=== PATIENT | male | born 1985 | race Caucasian/White ===

== ENCOUNTER 2023-10-20 11:05 | Emergency (ER) | payer BC, SELFPAY ==
[2023-10-20] VITALS (7 sets, daily range): BP systolic 126–165; BP diastolic 77–97; PULSE 83–96; RESP 12–20; TEMP 36.9; O2SAT 96–100
--- NOTE | 2023-10-20 11:30 | ED.GENADUL_ITS ---
HPI General Mode of arrival: ambulatory . Date/Time Provider Initiated Documentation: 10/20/23 11:07 . Limitations to Documentation: no limitations . Information obtained by: patient . History of Present Illness 38 year old M presents to the emergency department with the chief complaint of ?psychotic break, described as moderate, Patient started experiencing this day(s) (2) and it has been constant. No relieving factors improve symptom(s), No exacerbating factors reported . Patient notes denies chest pain, fever/chills and shortness of breath. Patient did receive the following treatments prior to arrival, none Related Data Home Medications Medication Instructions Recorded Confirmed Unknown [No Known Home Meds] 10/20/23 10/20/23 Allergies Allergy/AdvReac Type Severity Reaction Status Date / Time No Known Allergies Allergy Verified 10/20/23 12:19 General Stated Complaint: PsychEval ALBIN: 2 Review of Systems All systems reviewed & are unremarkable except as noted in HPI and below Constitutional Constitutional: Denies chills, Denies fever(s) and Denies weakness Cardiovascular Cardiovascular: Denies chest pain and Denies dyspnea Respiratory Respiratory: Denies cough and Denies dyspnea Gastrointestinal Gastrointestinal: Denies abdominal pain, Denies nausea and Denies vomiting Genitourinary Genitourinary: Denies dysuria Musculoskeletal Musculoskeletal: Denies joint swelling Integumentary/Breasts Skin/Breast: Denies rash Neurologic Neurologic: Denies weakness Exam Const General: no acute distress Orientation: alert [facility] Head: normal to inspection Ears: external ears normal General nose exam: external nose normal Mouth: moist mucous membranes Eyes General: appearance normal, both eyes and all related structures Neck Neck: normal visual inspection, full ROM and no lymphadenopathy Resp Effort & Inspection: normal respiratory effort and able to speak in complete sentences Cardio Rate: regular rate Skin General skin exam: no rashes or lesions noted Neuro General: patient alert and patient oriented x3 Extrem General: normal to inspection Psych Appearance: well kempt Course Vital Signs Vital signs: Vital Signs Pulse 96 H 10/20/23 11:14 Respiratory Rate 10/20/23 11:14 Blood Pressure 126/87 10/20/23 11:14 Pulse Oximetry 96 10/20/23 11:14 Pulse 96 H 10/20/23 11:14 Respiratory Rate 10/20/23 11:14 Blood Pressure 126/87 10/20/23 11:14 Blood Pressure Position Sitting 10/20/23 11:14 Pulse Oximetry 96 10/20/23 11:14 Oxygen Delivery Method Room Air 10/20/23 11:14 Oxygen Flow Rate 0 10/20/23 11:14 Medical Decision Making 38-year-old male comes in with EMS with a question of a psychotic break. He apparently was with his and kids driving home from [place], lives in [facility], it was starting to get agitated per EMS report and with EMS he was having flight of ideas talking about how he likes people that have lived in the world and was going on tangential thoughts. He apparently has not slept for 2 days. On arrival with EMS he tried to walk out of the department was redirected back into the room. He currently is not answering a lot of questions and seems anxious. He denies any headache, chest pain, abdominal pain, difficulty breathing. He has a normal gait, no focal deficits, pupils are equal and reactive to light, no signs of trauma to the head. Suspect this is a first psychotic break, will check for electrolyte abnormalities, talk screen, and given this is the first episode will attempt to get a head CT to exclude mass as a cause of this but it seems unlikely given lack of headache. does state that he did have a lot of ticks on him this past fall will send out tick panel, has no fevers chills never had any rashes so doubt Lyme meningitis. Given this is reportedly his first possible psychotic break do feel he needs labs and imaging before being medically cleared Labs unremarkable, still pending head CT, patient started hyperventilating seem to be having some type of panic attack and was not redirectable, was given Ativan, Zyprexa, Benadryl in order to calm him down and also do obtain CT imaging. As medications were ordered patient became aggressive and was trying to leave the room, was making threatening statements towards staff so in order to protect staff patient was medicated and placed in 4-point restraints. During this patient was having flight of ideas and was not redirectable pt more sedated but still waking up and intermittently agitated, in order to get the CT will administer IM ketamine CT negative, labs unremarkable, patient now medically cleared to speak to mental health but he is too sedated at this time to speak with him so will need to be monitored until he can talk with mental health. Patient will be signed out to oncoming provider to observe until patient more awake to talk to mental health. Patient now sedated and calm in the bed so restraints were removed Differential Diagnosis Differential Diagnosis: Psychotic break, flight of ideas, Imaging Data Radiologic Study: Attestation: I personally reviewed and interpreted this imaging study as follows: Imaging: CT Scan Radiologist's impression: PROCEDURE INFORMATION: Exam: CT Head Without Contrast Exam date and time: 10/20/2023 2:40 PM Age: 38 years old Clinical indication: Other: Altered mental status, ? mass TECHNIQUE: Imaging protocol: Computed tomography of the head without contrast. COMPARISON: No relevant prior studies available. FINDINGS: Brain: Normal. No hemorrhage. Unremarkable white matter. No mass effect. Cerebral ventricles: No ventriculomegaly. Paranasal sinuses: There is mild mucosal disease of the left maxillary sinus. Mastoid air cells: Visualized mastoid air cells are well aerated. Bones/joints: Unremarkable. No acute fracture. Soft tissues: Unremarkable. IMPRESSION: No large territorial infarct or intracranial bleed. Lab Data Lab results reviewed: Yes I reviewed the patient's lab results. Quality:SDOH Health Related Social Needs: No Data to Display [facility] All Active Problems (Updated 10/20/23 @ 15:25 by Aaron Mccoy MD) Psychosis (Acute) Social History Smoking risk assessment performed?: No Discharge Plan Discharge Details Chief Complaint: PsychEval Clinical Impression: Psychosis Primary Care Provider: Christian White ED Provider: Aaron Mccoy Home Meds and New Rx's Prescriptions: No Action No Known Home Meds Restraint Face to Face Time of Face to Face Face to Face: Time of Face to Face: 13:23 Patient's Immediate Situation Requiring Restraints/Seclusion: Harm to Staff & Others Patient Response to Restraints: Remains Agitated and Restless Need for Continuation of Restraints Has Been Assessed: Restraints Continued 2nd Face to Face: Time of Face to Face: 14:59 Patient's Immediate Situation Requiring Restraints/Seclusion: Harm to Staff & Others Patient Response to Restraints: Remains Agitated and Restless Need for Continuation of Restraints Has Been Assessed: Restraints Continued 3rd Face to Face: Time of Face to Face: 15:29 Patient Response to Restraints: Tolerating without Problems Patient's Medical & Behavioral Condition: Patient now resting in bed, sedated, not agitated currently so we will remove from physical restraints and monitor. Need for Continuation of Restraints Has Been Assessed: Restraints Terminated
[2023-10-20 12:03] LABS: Abs Immature Grans 0.02 10^3/uL (0.0-0.06); Absolute Basophil Count 0.04 10^3/uL (0.0-0.2); Absolute Eosinophil Count 0.08 10^3/uL (0.0-0.7); Absolute Lymphocyte Count 0.79 10^3/uL (1.2-3.4); Absolute Monocyte Count 0.55 10^3/uL (0.1-0.8); Absolute Neutrophil Count 6.76 10^3/uL (1.2-6.7); Basophils % 0.5; HCT 45.3 % (40.0-50.0); HGB 16.1 g/dL (13.5-17.5); Immature Grans % 0.2; Lymphocytes % 9.6; MCH 29.2 pg (27.0-33.0); MCHC 35.5 % (32.0-36.0); MCV 82 fL (80-95); MPV 9.5 fL (8.0-11.0); Monocytes % 6.7; Platelet Count 183 10^3/uL (130-400); RBC 5.51 10^6/uL (4.36-5.78); RDW 11.9 % (11.8-14.1); RDW-SD 35.8 fL; WBC 8.24 10^3/uL (4.4-10.8)
[2023-10-20 12:11] LABS: Bilirubin Negative (Negative); Blood Negative (Negative); Clarity Sl Cloudy (Clear); Glucose Negative (Negative); Ketones Trace mg/dL (Negative); Leukocyte Esterase Negative (Negative); Nitrite Negative (Negative); Urobilinogen 0.2 mg/dL (Up to 0.2); pH 6.5 (5-8)
[2023-10-20 12:37] LABS: ALT 32 U/L (16-63); AST 30 U/L (15-37); Albumin 4.7 g/dL (3.4-5.0); Alkaline Phosphatase 101 U/L (46-116); BUN 10 mg/dL (7-18); Bilirubin, Total 0.9 mg/dL (0.2-1.0); Calcium 9.5 mg/dL (8.5-10.1); Chloride 103 mmol/L (98-107); Estimated GFR 98.18 (mL/min/1.73m2); Glucose 109 mg/dL (74-106); Lipase 21 U/L (16-77); Potassium 3.7 mmol/L (3.5-5.1); Sodium 143 mmol/L (136-145); Total Protein 8.3 g/dL (6.4-8.2)
[2023-10-20 12:39] LABS: *AMPHETAMINES SCREEN URINE Negative (Negative); *BARBITURATES SCREEN URINE Negative (Negative); *BENZODIAZEPINES SCREEN URINE Negative (Negative); Cannabinoids THC Negative (Negative); Cocaine Screen,Urine Negative (Negative); METHADONE URINE SCREEN Negative (Negative); OPIATES URINE SCREEN Negative (Negative)
[2023-10-20 12:45] LABS: Magnesium 2.1 mg/dL (1.8-2.4); TSH (W/Ref FT4) 2.13 uIU/mL (0.36-3.74)
[2023-10-20 12:48] LABS: Acetaminophen < 2 ug/mL (10-30)
[2023-10-20 12:50] LABS: ETHANOL BLOOD < 3.0 mg/dL (<10)
[2023-10-20 12:50] LABS: Tricyclic Antidepressants Negative (Negative)
[2023-10-20] MEDS: diphenhydrAMINE 50 MG/ML VIAL IM (13:27)
[2023-10-20] MEDS: LORazepam 2 MG/ML VIAL IM (13:28)
[2023-10-20] MEDS: Water,Injection,Sterile 10 ML VIAL (13:30)
[2023-10-20] MEDS: OLANZapine 10 MG VIAL IM (13:30)
--- NOTE | 2023-10-20 15:11 | DI.CT_ITS ---
Exam(s) CT HEAD WO EXAM: CT HEAD WO CLINICAL HISTORY: altered mental status, ?mass. TECHNIQUE: Imaging Protocol: Axial computed tomography images with coronal and sagittal reformatted images were created and reviewed COMPARISON: No exams were available for comparison FINDINGS: Ventricles and Extra axial spaces: Normal in size and morphology for the patient's age. Hemorrhage: None. Cerebral parenchyma: Normal. Midline shift: None. Brainstem/Cerebellum: Normal. Calvarium: Normal. Visualized Paranasal sinuses/Mastoids: Mild mucosal thickening in the left maxillary sinus a few ethm oid air cells and the right sphenoid sinus. No fluid levels are seen. The remaining visualized para nasal sinuses are clear. Soft Tissues: Unremarkable. IMPRESSION: No acute intracranial process. RADIATION DOSE DELIVERED: 833.74mGy.cm Total DLP DATA REPOSITORY: All CT scans at this facility are submitted to the National Radiology Data Registry (NRDR) Dose Index Registry (DIR) with the [employer] (ACR). RADIATION OPTIMIZATION: All CT scans at this facility use at least one of these dose optimization te chniques: automated exposure control; mA and/or kV adjustment per patient size (includes targeted exa ms where dose is matched to clinical indication); or iterative reconstruction.
--- NOTE | 2023-10-20 15:21 | DI.VRAD_ITS ---
PROCEDURE INFORMATION: Exam: CT Head Without Contrast Exam date and time: 10/20/2023 2:40 PM Age: 38 years old Clinical indication: Other: Altered mental status, ? mass TECHNIQUE: Imaging protocol: Computed tomography of the head without contrast. COMPARISON: No relevant prior studies available. FINDINGS: Brain: Normal. No hemorrhage. Unremarkable white matter. No mass effect. Cerebral ventricles: No ventriculomegaly. Paranasal sinuses: There is mild mucosal disease of the left maxillary sinus. Mastoid air cells: Visualized mastoid air cells are well aerated. Bones/joints: Unremarkable. No acute fracture. Soft tissues: Unremarkable. IMPRESSION: No large territorial infarct or intracranial bleed. Dictated and Authenticated by: Tim Sanford MD. Ordering:DARA Walker MD
[2023-10-20] MEDS: Ketamine 500 MG/10 ML VIAL 300 MG IM (15:23)
--- NOTE | 2023-10-20 18:38 | ED.PROG_ITS ---
Date of service: 10/20/23 Time of Service: 18:38 Medical Decision Making Patient accepted in signout from off going provider. 38-year-old gentleman without prior history of psychiatric illness or other medical problems presents with 4 days of worsening altered mental status, bizarre behavior, delusions, paranoia. Has not slept in 2 days. Patient was ruled received multiple doses of sedation for his agitation and to facilitate getting a head CT. His workup was otherwise unremarkable. His head CT is unremarkable. There is no clear organic etiology of his altered mental status. On my evaluation, the patient was disorganized, paranoid and bizarre, but calm. His is here and denies any drug use or history of psychiatric illness. A telepsychiatry consultation was made. I discussed the case with the tele psychiatrist and she reviewed the chart and documentation. 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 The symptoms do seem to fit. She does not feel that there is an underlying organic etiology that we have missed. She recommends starting medication for mood stabilization. The psych recommendations include: 5 mg oral Zyprexa twice daily 500 mg Depakote twice daily 10mg IM Zyprexa as needed for acute agitation. She recommends a Depakote level in 5 days and a baseline ammonia level. The patient was evaluated by [facility] and they do not feel the patient has any insight or capacity for decision-making at this time. He is unable to make a safety plan as he states everything will be resolved tomorrow with the end of the world.. They recommend EEG. This paperwork has been filed. At this time we are pending a second certification. Medical Records Medical records reviewed: Yes I reviewed the patient's medical records. Lab Data Lab results reviewed: Yes I reviewed the patient's lab results. Quality:SDOH Health Related Social Needs: No Data to Display Sign Out Sign Out Data: Sign Out Comment: no prior medical or psychiatric disorders, was driving home with his and kids from a friend's house apparently has not slept for 2 days and today has been having flight of ideas. His significant other stopped the car and called for EMS to help as she was becoming agitated. On arrival he was not answering a lot of questions but then after being here for some time he became agitated and was having flight of ideas requiring chemical restraint. Was able to speak to mental health prior to being sedated as he was not medically cleared. Labs and CT head unremarkable so now is medically cleared to speak to mental health when he is more awake. Last updated by Aaron Mccoy MD at 10/20/23 15:41 Discharge Plan Discharge Details Chief Complaint: PsychEval Clinical Impression: Psychosis Primary Care Provider: Christian White ED Provider: Belen Howard Home Meds and New Rx's Prescriptions: No Action No Known Home Meds
--- NOTE | 2023-10-20 22:38 | PDOC.MHCN_ITS ---
Date of service: 10/20/23 Time of Service: 19:15 Mental Health Emergency Note Release [facility] release signed:: No Reason for Visit The client is not known to [facility], prior to the assessment today. The client arrived at [facility] ED via EMS after [place] [address] as the client was becoming agitated yelling and screaming. This telegraphic typewriter mechanic assesses the client via telehealth. In the last 2 weeks has the pt presented for ES prior to today?: No Client Information Client is: New Well Housed: Yes Non Suicidal Self Injury Current: No History: No Safety Risk/Harm to Self or Others Current Ideation to Harm Self or Others: Yes to self. Intent: no, has no intent. Plan: no.does not have a plan. History of suicide attempt: No history of suicide attempt reported and to others. Intent: No Plan: no, does not have a plan. History of becoming violent with another person(any age): no history of violence with others. Risk: Does risk to harm exist?: yes. Access to means: No. Risk: High Risk Duty to warn indicated: No Asssessment/Mental Status Appearance: Well groomed Attitude: Cooperative and Guarded Behavior: Unremarkable and Agitated Speech: Soft, Slow, Slurred and Hesitant Affect: Flat and Cogruent with mood Mood: Expansive and Anxious Thought process: Loose associations, Flight of ideas and Tangential Hallucinations: yes, Auditory Delusions: yes, Persectory/Paranoid, Grandiose and Bizarre Attention: Wandering and Poor concentration Perception: Not impaired Orientation: Fully orientated Memory: Intact Insight: Poor Judgement: Poor Neurovegetative Symptoms Sleep: Decrease Appetitie: Decrease Interests: Decrease Energy: Decrease Libido: Not applicable Substance Use: Do you use nicotine?: No Have you used substances in the last 7 days?: No Additional Issues: Assaultive/Threatening Behavior: No Medical Concerns: No Client engaged in active self harm w/weapon: No Threatening to run away: No Child reported abuse/neglect: No Voluntarily presenting for services: No Domestic violence is a concern: No Extreme Psychosis or extreme behavior is present: Yes Impression The client presents in paper hospital scrubs and appearance seems to be unremarkable. The client?s attitude is cooperative for the majority of the assessment, but does get agitated and escalated at times. The client gives fair eye contact during the assessment. The client presents with tangential thoughts, loose associations and disorganized thought process. The client?s mood appears to be disorganized and confused as evidenced by the client repeating ?love equals power.? The client also states: ?the clarity that I received last night, money is being replaced by bitcoin. That is the reason why the [place] is completely invisible. Everything needs to be distributed and secured. I have one more task that is being asked of me before I lose this gift, it will be all over with tomorrow.? The client is showing poor insight and judgment as he has been becoming highly agitated, yelling and screaming and hyper focused on bitcoin and the world coming to an end. ? The client denies suicidal and homicidal ideations. Per the client?s ?s report about two to three weeks ago the client started to become obsessive with bitcoin, but seemed to be rational at times. Over the past week the client has been believing that there was going to be a financial crash and that all of their finances needed to be moved to [facility] where [place] or [place] could oversee their finances. The clients also believes that the world is coming to an end. It appears that the client is experiencing auditory hallucinations as he states: ?the creator is talking to me through music and giving me tasks to do.? ?This weekend the reports that the client was focused on going to [place] to see his friend Ravi. The client was able to agree with his that if the conversation with Ravi did not get the client back to his baseline that he would agree to be seen by a doctor. The reports that the client was able to have a rational conversation with Ravi, but then when they were in bed last night he was experiencing really fast intense breathing and holding the ?s hand repeating ?love equals power.? The reports that the client has not slept in two days. The reports that today when they were driving back home from [place] with his two children in the car ages 6 and 9 the client became highly dysregulated in the car holding on to the ?s hand and yelling and screaming at the top of his lungs. The client?s reports that she pulled over to the side of the road and called 911. While on the side of the road the client was still very escalated where he got out of the car and took their young son out of the car [place] highly traff[place] area. When the cl ient arrived at the ED he tried to elope numerous times and became highly agitated where he was threatening to harm [facility] ED staff. Based on the clients current presentation and inability to make rational decisions the client appears to be a danger to himself and others at this time. ? Plan/Disposition Recommended Disposition: Hospitalization No. Plan: The client was offered voluntary treatment, however at this time is refusing. Both this telegraphic typewriter mechanic and the provider agree that the client is a person that is need of treatment. The client will remain at [facility] ED on EE status pending 2nd certification that will happen with the psychiatrist within the next 24 hours. The client will be assessed by [facility] 2x daily until placement is secured. Person reported agreement to plan: No Reports/communication Outcome discussed with: ED/Personnel (Verbal passover given to ED provider Dr. Howard)
[2023-10-20] MEDS: OLANZapine 5 MG TAB PO (23:59)
[2023-10-20] MEDS: Divalproex 500 MG TABEC PO (23:59)
--- NOTE | 2023-10-21 00:01 | ED.PROG_ITS ---
Date of service: 10/20/23 Time of Service: 23:30 Medical Decision Making This patient was signed out to me. Please see previous notes for H&P and initial eval. In brief, 38yo M presenting with new onset mamadou and psychosis, medically cleared, EEd, pending 2nd cert. 0516 patient came to door of [facility], requested his stuff in order to leave, then pushed through the door and ran out of the building into the parking lot in paper scrubs and hospital socks. Snowing outside, cold, with wind chill 2F. [facility] notified. Patient escorted back into the building with verbal redirection, holding staff's hand. Upon getting back into the building, again attempted to leave and was physically placed in wheelchair and brought back into department. No falls or head strike at any point. Chemically restrained with 10mg IM zyprexa, 5mg IM versed, placed in 4 point soft physical restraints. Patient states How will you save everyone, do you know the plan?. On physical exam he has slight erythema to his right anterior chest, non-tender. Cool feet & toes, no indication of frostbite. No other lacerations, abrasions, erythema, echymosis, or tenderness. 0650 awake, agitated, pulling and biting at restraints. Given additional 10mg IM versed, physical restraints continued. Signed out to oncoming physician, plan remains as above. Quality:[facility] Health Related Social Needs: No Data to Display Sign Out Sign Out Data: Sign Out Comment: no prior medical or psychiatric disorders, was driving home with his and kids from a friend's house apparently has not slept for 2 days and today has been having flight of ideas. His significant other stopped the car and called for EMS to help as she was becoming agitated. On arrival he was not answering a lot of questions but then after being here for some time he became agitated and was having flight of ideas requiring chemical restraint. Was able to speak to mental health prior to being sedated as he was not medically cleared. Labs and CT head unremarkable so now is medically cleared to speak to mental health when he is more awake. Last updated by Aaron Mccoy MD at 10/20/23 15:41 Sign Out Comment: new onset mamadou with psychosis woke up and has been calm but very disorganized and paranoid. [facility] was able to evaluate him and had long discussion with . No insight, not capable of making decisions at this time, unable to voluntary, unable to safety plan. EE filed, 2nd cert pending Tele psych consult done, medication recommendations given. Last updated by Belen Howard MD at 10/21/23 00:19 Sign Out Comment: 38M, new onset mamadou and psychosis. EEd, pending 2nd cert. Eloped overnight @0515 to parking lot, returned by staff, physical restraints and 10 IM zyprexa 5 IM versed. Last updated by Sophia Zarco MD at 10/21/23 06:14 Discharge Plan Discharge Details Chief Complaint: PsychEval Clinical Impression: Psychosis Primary Care Provider: Christian White ED Provider: Sophia Zarco Home Meds and New Rx's Prescriptions: No Action No Known Home Meds Restraint Face to Face Time of Face to Face Face to Face: Time of Face to Face: 05:25 Patient's Immediate Situation Requiring Restraints/Seclusion: Harm to Patient Patient Response to Restraints: Remains Agitated and Restless Patient's Medical & Behavioral Condition: Eloped from department into snow, temp with wind chill 2F, in paper scrubs and socks. Unwilling to stay in ED, refuses voluntary medication. Under EE order. 2nd Face to Face: Time of Face to Face: 06:25 Patient's Immediate Situation Requiring Restraints/Seclusion: Harm to Patient Patient Response to Restraints: Tolerating without Problems Patient's Medical & Behavioral Condition: Appears to be sleeping. Remains on continuous pulse oximetry. Unable to assess patient for safety while asleep; will allow to sleep and re-assess for safety/need for restraints when awake. Need for Continuation of Restraints Has Been Assessed: Restraints Continued 3rd Face to Face: Time of Face to Face: 06:50 Patient's Immediate Situation Requiring Restraints/Seclusion: Harm to Patient Patient Response to Restraints: Remains Agitated and Restless Patient's Medical & Behavioral Condition: Agitated, pulling at restraints, trying to get out of bed, rocking stretcher, biting at wrist restraints. Attempted verbal redirection without success. Physical restraints continued, given additional chemical restraints with 10mg IV Versed.
[2023-10-21] MEDS: Midazolam 2 MG/2 ML VIAL 5 MG IM (05:29)
[2023-10-21] MEDS: Water,Injection,Sterile 10 ML VIAL ×2 (05:30→20:31)
[2023-10-21] MEDS: OLANZapine 10 MG VIAL IM ×2 (05:30→20:30)
--- NOTE | 2023-10-21 05:45 | NUR.NOTE ---
Nursing Note:At approximately 0517 patient had gotten up to use the restroom, he had pulled the bathroom call light seeking assistance with flushing the commode, NANCY Issa stepped inside unit to assist with the patient's care while this nurse monitored via the cameras while on the desk phone with charge nurse communicating patient update. After awaking to use the restroom, patient very quickly became restless, mildly agitated, and expressed slight aggression. This nurse and NANCY Issa notified charge nurse and ED personnel of the acute change in patient behaviors and that there may be a need for additional support. Patient began pacing within the hallway and attempting to open the locked lockers. Patient was encouraged to return to his room and that we would notify his care team and obtain additional resources to assist in his care. Patient began walking the owens, in and out of his room, and he came up to the split door at the back of the nursing station. NANCY Issa opened the top half of the door slightly to speak with the patient. He stated he wanted to leave and that he wanted his clothing back. NANCY Issa attempted to speak calmly to the patient about awaiting the doctor to come in and assist him. He became mildly agitated and moderately aggressive and said No, I want to leave it was at that moment that he pushed Clive Umanzor away from the door, leaned deeply over its side and gained unapproved entry to the nursing station, Clive Umanzor again attempted to kindly and calmly redirect the patient, while I called for additional resources and security assistance. Patient once again pushed Clive Umanzor and ran from the exit door of the nursing station, through the emergency exit directly across the owens, and down the sidewalk barefoot, in paper scrubs, and attempted to hitchhike with the snow plow telephone directory distributor driver. Security and additional staff were immediately directed to the scene, where the safely escorted patient back into the ED.
--- NOTE | 2023-10-21 05:53 | NUR.NOTE ---
Pt catarina, zone B requested assistance, pt observed running outside the ambulance bay, I went to help, pt is on an emergency hold, refinery operator helper crude unit and I were able to walk pt back inside, once inside [facility] the pt began to become combative, he was moved to a wheel chair and taken to room 5, he began to fight with staff and required physical and chemical restraint for his own safety as well as that of hospital staff, DENISSE
[2023-10-21] MEDS: Midazolam 10 MG/2 ML VIAL NS (06:50)
--- NOTE | 2023-10-21 07:06 | ED.PROG_ITS ---
Date of service: 10/21/23 Time of Service: 07:07 Medical Decision Making I received signout on this 38-year-old male currently on an involuntary hold in the setting of new onset mamadou and psychosis. Overnight he transiently eloped to the parking lot but returned and subsequently received 10 mg of olanzapine an d 5 mg of midazolam. He was pulling at restraints and received additional 10 mg of midazolam. Patient did have a telepsych consult with med recommendations received. Patient is refusing medications. Will update documentation as clinically warranted and signed patient out to the [facility] evening provider. 9:51 AM Patient is out of restraints. 10:05 PM I spoke with Dr. Bright from psychiatry who will complete second certification. 10:45 AM Per health hospital unit clerk a second certification has been upheld. 5 PM Patient transiently eloped from the emergency department. Electronic Controls Repairer Supervisor were here at the time and they are able to escort the patient back into the emergency department. He was able to be verbally de-escalated. Patient will be continued on his involuntary hold. Will sign patient out to the [facility] provider. Quality:[facility] Health Related Social Needs: No Data to Display Sign Out Sign Out Data: Sign Out Comment: no prior medical or psychiatric disorders, was driving home with his and kids from a friend's house apparently has not slept for 2 days and today has been having flight of ideas. His significant other stopped the car and called for EMS to help as she was becoming agitated. On arrival he was not answering a lot of questions but then after being here for some time he became agitated and was having flight of ideas requiring chemical restraint. Was able to speak to mental health prior to being sedated as he was not medically cleared. Labs and CT head unremarkable so now is medically cleared to speak to mental health when he is more awake. Last updated by Aaron Mccoy MD at 10/20/23 15:41 Sign Out Comment: new onset mamadou with psychosis woke up and has been calm but very disorganized and paranoid. [facility] was able to evaluate him and had long discussion with . No insight, not capable of making decisions at this time, unable to voluntary, unable to safety plan. EE filed, 2nd cert pending Tele psych consult done, medication recommendations given. Last updated by Belen Howard MD at 10/21/23 00:19 Sign Out Comment: 38M, new onset mamadou and psychosis. EEd, pending 2nd cert. Eloped overnight @0515 to parking lot, returned by staff, physical restraints and 10 IM zyprexa 5 IM versed. Agitated and pulling at restraints at 0650, given additional 10mg IM versed. Last updated by Sophia Zarco MD at 10/21/23 07:00 Discharge Plan Discharge Details Chief Complaint: PsychEval Clinical Impression: Psychosis Primary Care Provider: Christian White ED Provider: Ravi Graf Home Meds and New Rx's Prescriptions: No Action No Known Home Meds Restraint Face to Face Time of Face to Face Face to Face: Time of Face to Face: 08:04 Patient's Immediate Situation Requiring Restraints/Seclusion: Harm to Staff & Others Patient Response to Restraints: Tolerating without Problems Patient's Medical & Behavioral Condition: Patient continued resting asleep. Will continue restraints. Need for Continuation of Restraints Has Been Assessed: Restraints Continued
--- NOTE | 2023-10-21 11:09 | NUR.NOTE ---
Pt ambulated to zone B with security and nursing staff. Refused medications ordered but otherwise pleasant and cooperative. Given crackers and peanut butter per pt request.
[2023-10-21] MEDS: OLANZapine 5 MG TAB PO (12:02)
[2023-10-21] MEDS: Divalproex 500 MG TABEC PO (12:09)
--- NOTE | 2023-10-21 12:14 | CMSP_ITS ---
Care Management Safety Plan Status Status: Involuntary Reason for Wait Reason for Wait: Inpatient Admission Safety Plan Safety Plan: INVOLUNTARY FOR INPATIENT PSYCHIATRIC STABILIZATION.? Patient is appropriate in all interactions since arriving at [facility]; Pt has demonstrated appropriate coping and communication skills, has articulated his or her needs and concerns and is fully engaged during staff interactions. GENARO Hewitt at [facility] reports 2nd Certification certified by [facility] Psychiatrist; awaiting [facility] paperwork to process referrals for placement. Alexandre now in Zone B in the ED awaiting placement. Safety plan has been established with patient, and care team, to adhere to patient goals, identify restrictions based on behavioral status, address nutrition, and determine allowed personal belongings, tools for hygiene and personal care. Determine level of activity including ambulation, level of supervision, visitors, and determine privileges based on behaviors and level of engagement by pt. SAFETY PLAN: 1. Will remain on suicide precautions, in paper clothes 2. Will remain in Zone B under direct supervision of one-on-one staff at all times provided by [employer]; NANCY, AIR BAG STRIPPER winding rack operator. 3. May have paper cups, plates, finger foods as well as a cardboard spoon with which to eat meals. 4. Follow [facility] Management of the Admitted Behavioral Health Patient policy. 5. Shower available in Zone B without restriction. 6. Personal belongings-soft items permitted at RN discretion. 7. Visitors-none at this time. 8. Activities: soft cart items approved per RN discretion. 9.? Bathroom available in Zone B without restriction. 10. Phone: limited to [facility] cordless phone at RN discretion. Due to INVOLUNTARY status, patient is being held at [facility] by the Department of Mental Health ([facility]) until 2nd certification by [facility] Psychiatrist can be performed (within 24 hours). Staff will provide de-escalation support (CPI) as needed. If patient wishes to leave [facility], staff will contact [facility] Crisis Screener ([phone]) and Programmer Analyst [employer] ([phone]) as soon as possible. In the event of elopement, notify [place] [employer] ([phone]). Patient is currently involuntarily at [facility]. [facility] Frontline Licensed Physical Therapist will continue seeking placement. Please contact the [employer] [facility] for any needed changes to Safety Plan. Safety plan has been provided to interdepartmental care team. Patient will be transported by [facility] at time of discharge.
--- NOTE | 2023-10-21 12:14 | PDOC.CMSAFE ---
Care Management Safety Plan Status Status: Involuntary Reason for Wait Reason for Wait: Inpatient Admission Safety Plan Safety Plan: INVOLUNTARY FOR INPATIENT PSYCHIATRIC STABILIZATION.? Patient is appropriate in all interactions since arriving at [facility]; Pt has demonstrated appropriate coping and communication skills, has articulated his or her needs and concerns and is fully engaged during staff interactions. GENARO Hewitt at [facility] reports 2nd Certification certified by [facility] Psychiatrist; awaiting [facility] paperwork to process referrals for placement. Alexandre now in Zone B in the ED awaiting placement. Safety plan has been established with patient, and care team, to adhere to patient goals, identify restrictions based on behavioral status, address nutrition, and determine allowed personal belongings, tools for hygiene and personal care. Determine level of activity including ambulation, level of supervision, visitors, and determine privileges based on behaviors and level of engagement by pt. SAFETY PLAN: 1. Will remain on suicide precautions, in paper clothes 2. Will remain in Zone B under direct supervision of one-on-one staff at all times provided by [employer]; NANCY, JOB SPOTTER purchasing director. 3. May have paper cups, plates, finger foods as well as a cardboard spoon with which to eat meals. 4. Follow [facility] Management of the Admitted Behavioral Health Patient policy. 5. Shower available in Zone B without restriction. 6. Personal belongings-soft items permitted at RN discretion. 7. Visitors-none at this time. 8. Activities: soft cart items approved per RN discretion. 9.? Bathroom available in Zone B without restriction. 10. Phone: limited to [facility] cordless phone at RN discretion. Due to INVOLUNTARY status, patient is being held at [facility] by the Department of Mental Health ([facility]) until 2nd certification by [facility] Psychiatrist can be performed (within 24 hours). Staff will provide de-escalation support (CPI) as needed. If patient wishes to leave [facility], staff will contact [facility] Crisis Screener ([phone]) and Quiller Machine Fixer ([phone]) as soon as possible. In the event of elopement, notify [place] [employer] ([phone]). Patient is currently involuntarily at [facility]. [facility] Frontline Progress Worker will continue seeking placement. Please contact the Quiller Machine Fixer for any needed changes to Safety Plan. Safety plan has been provided to interdepartmental care team. Patient will be transported by [facility] at time of discharge.
--- NOTE | 2023-10-21 23:01 | ED.PROG_ITS ---
Date of service: 10/21/23 Time of Service: 23:01 Medical Decision Making Per signout on prior shift eloped to the parking lot but was escorted back. He is on EE status for psychosis. Will continue to monitor until safe disposition filed, patient currently calm and no acute complaints. Quality:[facility] Health Related Social Needs: No Data to Display Sign Out Sign Out Data: Sign Out Comment: no prior medical or psychiatric disorders, was driving home with his and kids from a friend's house apparently has not slept for 2 days and today has been having flight of ideas. His significant other stopped the car and called for EMS to help as she was becoming agitated. On arrival he was not answering a lot of questions but then after being here for some time he became agitated and was having flight of ideas requiring chemical restraint. Was able to speak to mental health prior to being sedated as he was not medically cleared. Labs and CT head unremarkable so now is medically cleared to speak to mental health when he is more awake. Last updated by Aaron Mccoy MD at 10/20/23 15:41 Sign Out Comment: new onset mamadou with psychosis woke up and has been calm but very disorganized and paranoid. [facility] was able to evaluate him and had long discussion with . No insight, not capable of making decisions at this time, unable to voluntary, unable to safety plan. EE filed, 2nd cert pending Tele psych consult done, medication recommendations given. Last updated by Belen Howard MD at 10/21/23 00:19 Sign Out Comment: 38M, new onset mamadou and psychosis. EEd, pending 2nd cert. Eloped overnight @0515 to parking lot, returned by staff, physical restraints and 10 IM zyprexa 5 IM versed. Agitated and pulling at restraints at 0650, given additional 10mg IM versed. Last updated by Sophia Zarco MD at 10/21/23 07:00 Sign Out Comment: 38-year-old male new onset mamadou psychosis second CERT upheld. Eloped again today. Refusing medications. Last updated by Ravi Graf MD at 10/21/23 17:14 Sign Out Comment: 38y M new onset mamadou with psychosis EE with 2nd cert completed pending placement many issues throughout shift! - has eloped from zone B twice - has been moving bed against door in attempt to barricade, staff still able to get into room. HAVE RECOMMENDED THAT IF THIS CONTINUES TO PLEASE REMOVE THE BED FROM THE ROOM - highly paranoid and does best with structured routine. nurses should introduce themselves at the beginning of the shift and tell him what time he should be expecting his medication. MEDICATION PLAN: 1. depakote 500mg TID PO 2. olanzapine 5mg PO BID 3. seroquel xr 600mg QPM PATIENT NEEDS MOOD STABILIZATION If patient refuses to take oral medications then he needs to get a 5mg IM zyprexa dose, EVEN IF he is not acutely agitated/violent. It is not being used for sedation or restraint, but for therapeutic mood stabilization. - Would consider depakote sprinkles on food (psych MD rec) if he's eating but refusing to take the depakote Last updated by Belen Howard MD at 10/21/23 22:45 Discharge Plan Discharge Details Chief Complaint: PsychEval Clinical Impression: Psychosis Primary Care Provider: Christian White ED Provider: Aaron Mccoy Home Meds and New Rx's Prescriptions: No Action No Known Home Meds
[2023-10-22] VITALS (9 sets, daily range): BP systolic 108–115; BP diastolic 70–77; PULSE 81–115; RESP 18–22; O2SAT 95
--- NOTE | 2023-10-22 06:50 | NUR.NOTE ---
Patient's calling and requesting an update. Patient's also requested that his morning medications be offered to him early in as she feels he may be more likely to take them first thing in the morning. plans to come to visit by 0930. :
--- NOTE | 2023-10-22 07:47 | W.EDPROG ---
Date of service: 10/22/23 Time of Service: 07:47 Medical Decision Making 715 --care signed out to me by Dr. Mccoy. Plan at signout was to continue to monitor patient on EE hold awaiting acceptance at inpatient psychiatric facility. 740 --ml coleman called. Patient attempting to move furniture into the hallway, barricading security staff in his room, security noted concern for their safety and safety of staff. Myself and staff attempted to de-escalate the patient. This was unsuccessful he remains labile, Patient intermittently standing on the bed and table. He is at significant risk of fall. Patient refusing to take oral medication. Given ongoing threat to patient and staff, plan to restrain patient. 950 -- Patient reevaluated. Tolerating restraints. Patient continues to lack insight. Nursing note patient was recently spitting on the floor. I am concerned about his labile behavior and poor insight. Patient unable to demonstrate safety. Restraints continue to be indicated at this time until he is able to demonstrate safety. Plan to reassess after patient is able to agree to p.o. meds. -- Patient reassessed: Patient exhibiting calm and cooperative behavior. He has agreed to take his oral medication with the prompting of his . I had collaborative discussion with nursing and decision made to discontinue restraints. 1358 --ml coleman called by nursing. Patient exhibiting labile behavior. Patient grabbing his who is asking for help from nursing staff. De-escalation techniques attempted and were unsuccessful. I had a [id number] encounter with the patient and restraints are indicated at this time. We assisted his in exiting the room. With security assistance, physical restraints were applied and chemical restraints droperidol and Ativan were administered without complication to protect the patient and others. The patient's requested to come back in the room to be with her . I believe she does provide therapeutic engagement. I have instructed her that he is currently in restraints and needs to be for the time being until he can demonstrate safe behavior. 1545 --patient reassessed and nursing noting continued labile behavior. Patient is confused. Nursing and myself concerned about his safety and the safety of others and will maintain for point restraints at this time. Quality:[facility] Health Related Social Needs: No Data to Display Sign Out Sign Out Data: Sign Out Comment: no prior medical or psychiatric disorders, was driving home with his and kids from a friend's house apparently has not slept for 2 days and today has been having flight of ideas. His significant other stopped the car and called for EMS to help as she was becoming agitated. On arrival he was not answering a lot of questions but then after being here for some time he became agitated and was having flight of ideas requiring chemical restraint. Was able to speak to mental health prior to being sedated as he was not medically cleared. Labs and CT head unremarkable so now is medically cleared to speak to mental health when he is more awake. Last updated by Aaron Mccoy MD at 10/20/23 15:41 Sign Out Comment: new onset mamadou with psychosis woke up and has been calm but very disorganized and paranoid. [facility] was able to evaluate him and had long discussion with . No insight, not capable of making decisions at this time, unable to voluntary, unable to safety plan. EE filed, 2nd cert pending Tele psych consult done, medication recommendations given. Last updated by Belen Howard MD at 10/21/23 00:19 Sign Out Comment: 38M, new onset mamadou and psychosis. EEd, pending 2nd cert. Eloped overnight @0515 to parking lot, returned by staff, physical restraints and 10 IM zyprexa 5 IM versed. Agitated and pulling at restraints at 0650, given additional 10mg IM versed. Last updated by Sophia Zarco MD at 10/21/23 07:00 Sign Out Comment: 38-year-old male new onset mamadou psychosis second CERT upheld. Eloped again today. Refusing medications. Last updated by Ravi Graf MD at 10/21/23 17:14 Sign Out Comment: 38y M new onset mamadou with psychosis EE with 2nd cert completed pending placement many issues throughout shift! - has eloped from zone B twice - has been moving bed against door in attempt to barricade, staff still able to get into room. HAVE RECOMMENDED THAT IF THIS CONTINUES TO PLEASE REMOVE THE BED FROM THE ROOM - highly paranoid and does best with structured routine. nurses should introduce themselves at the beginning of the shift and tell him what time he should be expecting his medication. MEDICATION PLAN: 1. depakote 500mg TID PO 2. olanzapine 5mg PO BID 3. seroquel xr 600mg QPM PATIENT NEEDS MOOD STABILIZATION If patient refuses to take oral medications then he needs to get a 5mg IM zyprexa dose, EVEN IF he is not acutely agitated/violent. It is not being used for sedation or restraint, but for therapeutic mood stabilization. - Would consider depakote sprinkles on food (psych MD rec) if he's eating but refusing to take the depakote Last updated by Belen Howard MD at 10/21/23 22:45 Sign Out Comment: No issues during my shift but did elope during shift prior to mine. Please see below which was from who received psychiatry recommendations. MEDICATION PLAN: 1. depakote 500mg TID PO 2. olanzapine 5mg PO BID 3. seroquel xr 600mg QPM PATIENT NEEDS MOOD STABILIZATION If patient refuses to take oral medications then he needs to get a 5mg IM zyprexa dose, EVEN IF he is not acutely agitated/violent. It is not being used for sedation or restraint, but for therapeutic mood stabilization. - Would consider depakote sprinkles on food (psych MD rec) if he's eating but refusing to take the depakote Last updated by Aaron Mccoy MD at 10/21/23 23:06 Discharge Plan Discharge Details Chief Complaint: PsychEval Clinical Impression: Psychosis Primary Care Provider: Christian White ED Provider: Mehul Hopkins Home Meds and New Rx's Prescriptions: No Action No Known Home Meds Restraint Face to Face Time of Face to Face Face to Face: Time of Face to Face: 07:59 Patient's Immediate Situation Requiring Restraints/Seclusion: Harm to Patient Patient Response to Restraints: Tolerating without Problems Need for Continuation of Restraints Has Been Assessed: Restraints Continued 2nd Face to Face: Time of Face to Face: 15:49 Patient's Immediate Situation Requiring Restraints/Seclusion: Harm to Patient Patient Response to Restraints: Remains Agitated and Restless Patient's Medical & Behavioral Condition: Patient continues to exhibit labile behavior. Unable to ensure safety at this time. Need for Continuation of Restraints Has Been Assessed: Restraints Continued 3rd Face to Face: Time of Face to Face: 18:02 Patient's Immediate Situation Requiring Restraints/Seclusion: Harm to Patient Patient Response to Restraints: Tolerating without Problems Need for Continuation of Restraints Has Been Assessed: Restraints Continued 4th Face to Face: Time of Face to Face: 20:28 Patient's Immediate Situation Requiring Restraints/Seclusion: Harm to Patient Patient Response to Restraints: Tolerating without Problems Need for Continuation of Restraints Has Been Assessed: Restraints Continued
[2023-10-22] MEDS: Midazolam 2 MG/2 ML VIAL 4 MG IM (08:02)
[2023-10-22] MEDS: diphenhydrAMINE 50 MG/ML VIAL 25 MG IM (08:03)
[2023-10-22] MEDS: Droperidol 5 MG/2 ML VIAL 10 MG IVP (08:03)
--- NOTE | 2023-10-22 10:46 | CMSP_ITS ---
Date of service: 10/22/23 Time of Service: 10:48 Care Management Safety Plan Status Status: Involuntary Reason for Wait Reason for Wait: Inpatient Admission Safety Plan Safety Plan: INVOLUNTARY FOR INPATIENT PSYCHIATRIC STABILIZATION.? Patient is appropriate in all interactions since arriving at [facility]; Pt has demonstrated appropriate coping and communication skills, has articulated his or her needs and concerns and is fully engaged during staff interactions. Alexandre is currently in Zone B in the ED awaiting placement. Safety plan has been established with patient, and care team, to adhere to patient goals, identify restrictions based on behavioral status, address nutrition, and determine allowed personal belongings, tools for hygiene and per brayan care. Determine level of activity including ambulation, level of supervision, visitors, and determine privileges based on behaviors and level of engagement by pt. SAFETY PLAN: 1. Will remain on suicide precautions, in paper clothes 2. Will remain in Zone B under direct supervision of one-on-one staff at all times provided by [employer]; TELEPHONE INTERVIEWER, TECHNICAL SERVICES ASSISTANT reversal print inspector. 3. May have paper cups, plates, finger foods as well as a cardboard spoon with which to eat meals. 4. Follow [facility] Management of the Admitted Behavioral Health Patient policy. 5. Shower available in Zone B without restriction. 6. Personal belongings-soft items permitted at RN discretion. 7. Visitors allowed at RN/Provider discretion; his , mother and father are identified as supports, per [facility]. 8. Activities: soft cart items approved per RN discretion. 9.? Bathroom available in Zone B without restriction. 10. Phone: limited to [facility] cordless phone at RN discretion. Due to INVOLUNTARY status, patient is being held at [facility] by the Department of Mental Health ([facility]) until 2nd certification by [facility] Psychiatrist can be performed (within 24 hours). Staff will provide de-escalation support (CPI) as needed. If patient wishes to leave [facility], staff will contact [facility] Crisis Screener ([phone]) and [employer] Offset Press Operator ([phone]) as soon as possible. In the event of elopement, notify [place] [employer] ([phone]). Patient is currently involuntarily at [facility]. [facility] Frontline Administrative Receptionist will continue seeking placement. Please contact the [employer] Offset Press Operator for any needed changes to Safety Plan. Safety plan has been provided to interdepartmental care team. Patient will be transported by gold letterer at time of discharge.
--- NOTE | 2023-10-22 10:46 | PDOC.CMSAFE ---
Date of service: 10/22/23 Time of Service: 10:48 Care Management Safety Plan Status Status: Involuntary Reason for Wait Reason for Wait: Inpatient Admission Safety Plan Safety Plan: INVOLUNTARY FOR INPATIENT PSYCHIATRIC STABILIZATION.? Patient is appropriate in all interactions since arriving at [facility]; Pt has demonstrated appropriate coping and communication skills, has articulated his or her needs and concerns and is fully engaged during staff interactions. Alexandre is currently in Zone B in the ED awaiting placement. Safety plan has been established with patient, and care team, to adhere to patient goals, identify restrictions based on behavioral status, address nutrition, and determine allowed personal belongings, tools for hygiene and personal care. Determine level of activity including ambulation, level of supervision, visitors, and determine privileges based on behaviors and level of engagement by pt. SAFETY PLAN: 1. Will remain on suicide precautions, in paper clothes 2. Will remain in Zone B under direct supervision of one-on-one staff at all times provided by [employer]; ALGEBRA TUTOR, MRI CT TECH radiation control worker. 3. May have paper cups, plates, finger foods as well as a cardboard spoon with which to eat meals. 4. Follow [facility] Management of the Admitted Behavioral Health Patient policy. 5. Shower available in Zone B without restriction. 6. Personal belongings-soft items permitted at RN discretion. 7. Visitors allowed at RN/Provider discretion; his , mother and father are identified as supports, per [facility]. 8. Activities: soft cart items approved per RN discretion. 9.? Bathroom available in Zone B without restriction. 10. Phone: limited to [facility] cordless phone at RN discretion. Due to INVOLUNTARY status, patient is being held at [facility] by the Department of Mental Health ([facility]) until 2nd certification by [facility] Psychiatrist can be performed (within 24 hours). Staff will provide de-escalation support (CPI) as needed. If patient wishes to leave [facility], staff will contact [facility] Crisis Screener ([phone]) and Rn Labor Delivery ([phone]) as soon as possible. In the event of elopement, notify [place] [employer] ([phone]). Patient is currently involuntarily at [facility]. [facility] Frontline Cupola Tender will continue seeking placement. Please contact the Rn Labor Delivery for any needed changes to Safety Plan. Safety plan has been provided to interdepartmental care team. Patient will be transported by patrol sergeant sheriff's office at time of discharge.
--- NOTE | 2023-10-22 10:49 | CMPROGNOTE_ITS ---
Date of service: 10/22/23 Time of Service: 10:49 Care Management Progress Note Progress Note Text Progress Note Text: 10:15am CM went to the ED to huddle with staff regarding the safety plan for Alexandre. Per staff, Alexandre is in four point restraints currently after displaying dangerous actions this morning, such as standing up on his bed and barricading the door with the bed, as well as spitting at staff. Per RN, he has been paranoid and delusional, with little to no awareness of his actions/behaviors. Per MD, his , Meghann, is in the waiting room, and has requested to visit with him. Per [facility], Meghann is very supportive, as are his mother and father, who were present when he arrived at the ED as well. BRICE has updated his safety plan at the request of staff, stating that he may have his , mother, or father visit, at RN/Provider discretion. Per [facility], referrals have been sent, awaiting response. Per RN, he has a telepsych appointment this morning with Radha. Although he is currently in restraints, staff is willing to support him in attending this meeting. 12:30pm BRICE received notice from [facility] that Alexandre has been accepted at [facility] pending medical clearance. BRICE called the ED and spoke to Melani, who stated that she is working on faxing clinical information, although she has had difficulty getting it to go through. Transportation will be provided by [facility], as he is an involuntary patient who will require secure transport. BRICE will continue to follow.
[2023-10-22 10:59] LABS: Lyme Ab w Rflx to Lyme Confirm Negative (Negative)
[2023-10-22] MEDS: OLANZapine 5 MG TAB PO ×2 (11:19→21:11)
[2023-10-22] MEDS: Divalproex 500 MG TABEC PO ×2 (11:20→21:11)
[2023-10-22] MEDS: LORazepam 2 MG/ML VIAL IM (13:35)
[2023-10-22] MEDS: Droperidol 5 MG/2 ML VIAL IM (13:35)
--- NOTE | 2023-10-22 14:59 | PSYCO_ITS ---
Date of service: 10/22/23 Time of Service: 14:50 Summary Note Psychiatry phone note Received telepsych consult for this patient, reviewed chart and spoke with GERRY Johnson to obtain clinical information. However, RN reports pt is sedated at this time due to medications received and is unable to participate. Staff requesting to postpone consult until pt is alert. Staff to please contact [facility] access center when consult can proceed.
--- NOTE | 2023-10-22 15:49 | NUR.NOTE ---
At start of shift, pt appears very agitated, pacing up and down hallway. Pt proceeded to pull his bed out of the room into the hallway. Security called to help return bed to the room. As windows security analyst attempted to put bed back in room, patient closed the information security associate into the room and attempted to hold the door shut. Blaine sy was called. Pt with increased agitation, standing on table and on top of bed. Unable to be redirected. Refusing PO medications. Pt placed in restraints and medicated while physician at bedside. Tele placed on patient for ongoing monitoring.
--- NOTE | 2023-10-22 15:57 | NUR.NOTE ---
at approximately 1315 pt in room with his , holding both of her hands tightly. Pts turned to desk towards staff mouthing that she needed help. Security called. Entered the room and patient stated he is spiraling. pt unable to express clear thoughts, appears confused and disassociated from present situation. Pt attempting to block door with staff and still in room. Blaine coleman called and pt placed back in restraints. Dr. Hopkins present at bedside for evaluation of patient and placement into restraints.
--- NOTE | 2023-10-23 03:31 | ED.PROG_ITS ---
Date of service: 10/22/23 Time of Service: 20:00 Medical Decision Making Quality:[facility] Health Related Social Needs: No Data to Display Narrative 10/23/23 @ 321 am. I have received signout and have seen and examined the patient. The patient has been awake for several hours. He tells me that he is having trouble sleeping and usually takes melatonin. I have offered him that along with trazodone which he has agreed to take. I have already written for them. Currently he is cooperative. Sign Out Sign Out Data: Sign Out Comment: no prior medical or psychiatric disorders, was driving home with his and kids from a friend's house apparently has not slept for 2 days and today has been having flight of ideas. His significant other stopped the car and called for EMS to help as she was becoming agitated. On arrival he was not answering a lot of questions but then after being here for some time he became agitated and was having flight of ideas requiring chemical restraint. Was able to speak to mental health prior to being sedated as he was not medically cleared. Labs and CT head unremarkable so now is medically cleared to speak to mental health when he is more awake. Last updated by Aaron Mccoy MD at 10/20/23 15:41 Sign Out Comment: new onset mamadou with psychosis woke up and has been calm but very disorganized and paranoid. [facility] was able to evaluate him and had long discussion with . No insight, not capable of making decisions at this time, unable to voluntary, unable to safety plan. EE filed, 2nd cert pending Tele psych consult done, medication recommendations given. Last updated by Belen Howard MD at 10/21/23 00:19 Sign Out Comment: 38M, new onset mamadou and psychosis. EEd, pending 2nd cert. Eloped overnight @0515 to parking lot, returned by staff, physical restraints and 10 IM zyprexa 5 IM versed. Agitated and pulling at restraints at 0650, given additional 10mg IM versed. Last updated by Sophia Zarco MD at 10/21/23 07:00 Sign Out Comment: 38-year-old male new onset mamadou psychosis second CERT upheld. Eloped again today. Refusing medications. Last updated by Ravi Graf MD at 10/21/23 17:14 Sign Out Comment: 38y M new onset mamadou with psychosis EE with 2nd cert completed pending placement many issues throughout shift! - has eloped from zone B twice - has been moving bed against door in attempt to barricade, staff still able to get into room. HAVE RECOMMENDED THAT IF THIS CONTINUES TO PLEASE REMOVE THE BED FROM THE ROOM - highly paranoid and does best with structured routine. nurses should introduce themselves at the beginning of the shift and tell him what time he should be expecting his medication. MEDICATION PLAN: 1. depakote 500mg TID PO 2. olanzapine 5mg PO BID 3. seroquel xr 600mg QPM PATIENT NEEDS MOOD STABILIZATION If patient refuses to take oral medications then he needs to get a 5mg IM zyprexa dose, EVEN IF he is not acutely agitated/violent. It is not being used for sedation or restraint, but for therapeutic mood stabilization. - Would consider depakote sprinkles on food (psych MD rec) if he's eating but refusing to take the depakote Last updated by Belen Howard MD at 10/21/23 22:45 Sign Out Comment: No issues during my shift but did elope during shift prior to mine. Please see below which was from who received psychiatry recommendations. MEDICATION PLAN: 1. depakote 500mg TID PO 2. olanzapine 5mg PO BID 3. seroquel xr 600mg QPM PATIENT NEEDS MOOD STABILIZATION If patient refuses to take oral medications then he needs to get a 5mg IM zyprexa dose, EVEN IF he is not acutely agitated/violent. It is not being used for sedation or restraint, but for therapeutic mood stabilization. - Would consider depakote sprinkles on food (psych MD rec) if he's eating but refusing to take the depakote Last updated by Aaron Mccoy MD at 10/21/23 23:06 Sign Out Comment: Patient is here on EEG involuntary hold awaiting transfer to inpatient psychiatric treatment facility. Patient has intermittently refused oral medications. He has had intermittent outburst today that have put himself and others at risk of harm. He has been restrained for his own safety. He is currently tolerating restraints. Restraint indication should be reassessed every 2 hours and reordered as appropriate. Telepsychiatry consult is pending. Please see prior signout, treatment recommendations. MEDICATION PLAN: 1. depakote 500mg TID PO 2. olanzapine 5mg PO BID 3. seroquel xr 600mg QPM PATIENT NEEDS MOOD STABILIZATION If patient refuses to take oral medications then he needs to get a 5mg IM zyprexa dose, EVEN IF he is not acutely agitated/violent. It is not being used for sedation or restraint, but for therapeutic mood stabilization. - Would consider depakote sprinkles on food (psych MD rec) if he's eating but refusing to take the depakote Last updated by Mehul Hopkins MD at 10/22/23 20:39 Discharge Plan Disposition Patient Disposition: Psychiatric Hospital/Unit Discharge Details Clinical Impression: Psychosis Primary Care Provider: Christian White ED Provider: Ravi Graf Home Meds and New Rx's Prescriptions: No Action No Known Home Meds Discharge Data Discharge Date/Time-TO BE ENTERED AT DEPARTURE: 10/23/23 15:12
--- NOTE | 2023-10-23 05:34 | NUR.NOTE ---
Nursing Note: This RN spoke with the Meghann who wanted an update on her . She wanted to know how his night had been and what medications he was taking. This RN let the know that the patient was taken out of restraints around 9pm last night and has been calm and cooperative with staff throughout the night with no behavioral issues. He took his evening medications without complication including zyprexa and depakote. This RN advised that telepsychiatrist did call last night but the patient was not in a place where he could be assessed. Meghann plans to be here around 9:30 this morning and would like to speak with the doctor and the psychiatrist who are prescribing his medications.
--- NOTE | 2023-10-23 08:46 | W.EDPROG ---
Date of service: 10/23/23 Time of Service: 08:47 Medical Decision Making I received signout on this 38-year-old male currently on an involuntary hold in the setting of new onset mamadou and psychosis. Yesterday he had multiple code yumiko. He was amenable to p.o. meds yesterday. Will update documentation as clinically warranted and signed patient out to the oncoming evening provider. 9:30 AM Patient's arrived. She had visited the patient yesterday and was reportedly helpful initially but subsequently a code coleman was called as he reportedly failed to separate from his . I spoke with patient's nurse Aaron counseled him on ensuring that the patient was going to be appropriate once the patient's departs. Will allow patient's to meet with the patient again. 9:45 PM I spoke to the patient's Meghann who had come to see the patient. I also spoke with her cousin Carolyne who is reportedly a psychiatrist in the [facility] area. Meghann reported that she would like to see the patient and I feel that this is reasonable assuming that it does not result in the patient receiving restraints. Will also attempt to provide him structure by giving him his medications twice daily at 8 AM and 8 PM. Will touch base with crisis team to assess patient's status for placement. 9:55 PM I spoke with Marcelina Ballard from [facility]. She had just gotten off the phone with [facility] in [place]. She will receive a call back in the next hour concerning possibility of placing the patient later today. 10:15 AM Patient was reportedly accepted by the [facility]. Will await completing the doc to doc. 11:05 AM Patient is reportedly undergoing psychiatric consultation at the moment. 12:04 PM Patient is reportedly going to be transported by [facility] between 2:30 PM and 3 PM this afternoon. Recommendations from psychiatry are as follows: Revise Depakote to 750 mg twice daily. Discontinue quetiapine 600 mg daily. Titrate olanzapine to 10 mg twice daily. I also ordered an ECG. 2:30 PM I signed the transfer documentation as the patient transferred to [facility]. Unfortunately he was transferred prior to his ECG being completed. Quality:[facility] Health Related Social Needs: No Data to Display Sign Out Sign Out Data: Sign Out Comment: no prior medical or psychiatric disorders, was driving home with his and kids from a friend's house apparently has not slept for 2 days and today has been having flight of ideas. His significant other stopped the car and called for EMS to help as she was becoming agitated. On arrival he was not answering a lot of questions but then after being here for some time he became agitated and was having flight of ideas requiring chemical restraint. Was able to speak to mental health prior to being sedated as he was not medically cleared. Labs and CT head unremarkable so now is medically cleared to speak to mental health when he is more awake. Last updated by aAron Mccoy MD at 10/20/23 15:41 Sign Out Comment: new onset mamadou with psychosis woke up and has been calm but very disorganized and paranoid. [facility] was able to evaluate him and had long discussion with . No insight, not capable of making decisions at this time, unable to voluntary, unable to safety plan. EE filed, 2nd cert pending Tele psych consult done, medication recommendations given. Last updated by Belen Howard MD at 10/21/23 00:19 Sign Out Comment: 38M, new onset mamadou and psychosis. EEd, pending 2nd cert. Eloped overnight @0515 to parking lot, returned by staff, physical restraints and 10 IM zyprexa 5 IM versed. Agitated and pulling at restraints at 0650, given additional 10mg IM versed. Last updated by Sophia Zarco MD at 10/21/23 07:00 Sign Out Comment: 38-year-old male new onset mamadou psychosis second CERT upheld. Eloped again today. Refusing medications. Last updated by Ravi Graf MD at 10/21/23 17:14 Sign Out Comment: 38y M new onset mamadou with psychosis EE with 2nd cert completed pending placement many issues throughout shift! - has eloped from zone B twice - has been moving bed against door in attempt to barricade, staff still able to get into room. HAVE RECOMMENDED THAT IF THIS CONTINUES TO PLEASE REMOVE THE BED FROM THE ROOM - highly paranoid and does best with structured routine. nurses should introduce themselves at the beginning of the shift and tell him what time he should be expecting his medication. MEDICATION PLAN: 1. depakote 500mg TID PO 2. olanzapine 5mg PO BID 3. seroquel xr 600mg QPM PATIENT NEEDS MOOD STABILIZATION If patient refuses to take oral medications then he needs to get a 5mg IM zyprexa dose, EVEN IF he is not acutely agitated/violent. It is not being used for sedation or restraint, but for therapeutic mood stabilization. - Would consider depakote sprinkles on food (psych MD rec) if he's eating but refusing to take the depakote Last updated by Belen Howard MD at 10/21/23 22:45 Sign Out Comment: No issues during my shift but did elope during shift prior to mine. Please see below which was from who received psychiatry recommendations. MEDICATION PLAN: 1. depakote 500mg TID PO 2. olanzapine 5mg PO BID 3. seroquel xr 600mg QPM PATIENT NEEDS MOOD STABILIZATION If patient refuses to take oral medications then he needs to get a 5mg IM zyprexa dose, EVEN IF he is not acutely agitated/violent. It is not being used for sedation or restraint, but for therapeutic mood stabilization. - Would consider depakote sprinkles on food (psych MD rec) if he's eating but refusing to take the depakote Last updated by Aaron Mccoy MD at 10/21/23 23:06 Sign Out Comment: Patient is here on EEG involuntary hold awaiting transfer to inpatient psychiatric treatment facility. Patient has intermittently refused oral medications. He has had intermittent outburst today that have put himself and others at risk of harm. He has been restrained for his own safety. He is currently tolerating restraints. Restraint indication should be reassessed every 2 hours and reordered as appropriate. Telepsychiatry consult is pending. Please see prior signout, treatment recommendations. MEDICATION PLAN: 1. depakote 500mg TID PO 2. olanzapine 5mg PO BID 3. seroquel xr 600mg QPM PATIENT NEEDS MOOD STABILIZATION If patient refuses to take oral medications then he needs to get a 5mg IM zyprexa dose, EVEN IF he is not acutely agitated/violent. It is not being used for sedation or restraint, but for therapeutic mood stabilization. - Would consider depakote sprinkles on food (psych MD rec) if he's eating but refusing to take the depakote Last updated by Mehul Hopkins MD at 10/22/23 20:39 Discharge Plan Discharge Details Chief Complaint: PsychEval Clinical Impression: Psychosis Primary Care Provider: Christian White ED Provider: Ravi Graf Home Meds and New Rx's Prescriptions: No Action No Known Home Meds
[2023-10-23] MEDS: Divalproex 500 MG TABEC PO (09:40)
[2023-10-23] MEDS: OLANZapine 5 MG TAB PO (09:41)
--- NOTE | 2023-10-23 11:56 | PSYCO_ITS ---
Date of service: 10/23/23 Time of Service: 11:56 Summary Note PSYCHIATRY CONSULT NOTE: INITIAL EVALUATION Name:?Alexandre Dove :?1985 Location of the patient:?[facility] ED Consulting Array Clinician:?Mery Ramos Location of the clinician:?[place], [place] SUMMARY 38-year-old male with history of psychiatric illness including bipolar disorder, with no history of self-harming/suicidal behavior/violent behavior with history of psychiatric hospitalization, arrived via EMS alerted by family for psychosis. Patient is a 38 year old male who resides in a single family home in [place] with and children. He has no prior psychiatric history, no prior inpatient psychiatric hospitalizations, no prior suicide attempts, no history of non suicidal self injurious behavior, and no prior chemical dependency. Patient presented to the emergency room with first episode of acute mamadou and psychosis. In the emergency room medical workup was unremarkable and urine drug screen was negative. Psychiatry was initially consulted on 10/20/23 and patient was sedated and this provider spoke at length with Dr. Rosi Rosenberg about diagnoses and psychotropic recommendations. Psychiatry was consulted for evaluation for medication recommendations. Patient continues to struggle with sleep and paranoia but according to his is much more organized and appears to be improving. Patient is at elevated risk of danger due to grave disability/poor self-care. Patient presently meets criteria for inpatient psychiatric hospit alization. Working Diagnoses:?F31.64 Bipolar disorder; current episode mixed; severe; with psychotic features Rule Out Diagnoses: CPT Codes:?21994 - Psychiatric Diagnostic Evaluation with Medical Services PLAN Disposition:?Voluntary admission when medically stable. Re-consult psychiatry/screening if patient requests discharge. Observation level ? Psychiatric 1:1 needed??Continue psych 1:1 Work-up: Pharmacological: * Revise Depakote to 750 mg twice daily. Discontinue quetiapine 600 mg daily. Titrate olanzapine to 10 mg twice daily. Please ensure the dosing is at 8 am and 8 pm, patient remains suspicious and if medications are administered too late he will refuse given ongoing paranoia. * Is patient psychotic? - Yes; Were antipsychotic medications started? - Yes * Informed consent: Discussed risks and benefits of the above recommended psychiatric medications with patient, who demonstrated understanding and gave express informed consent to take the above medications as documented. Follow up needed while in the hospital??Q24h Other: * Please obtain baseline EKG to monitor for QTc prolongation, cardiac arrhythmias, and torsades de pointes. Would maintain potassium above 4.0 and magnesium above 2.0 * If questions arise about the psychiatric care of this patient, please call the [facility]?to request a follow-up consult. ?Please do not contact me individually through the EMR chat as I am not?regularly logged on to?this system. The psychiatrist for the follow-up visit may be a different psychiatrist Discussed plan with onsite field marketing team leader:?Yes - Aaron GARRETT HISTORY Requested by:?Emergency medicine team, Sources of information:?Patient, medical record, History of Present Illness: 38-year-old male, living with family, , employed with history of psychiatric illness including bipolar disorder, with no history of self- harming/suicidal behavior/violent behavior with history of psychiatric hospitalization, arrived via EMS alerted by family for psychosis. UDS negative, Alcohol undetectable. In the hospital, patient has been in behavioral control with no reported issues. Patient is a 38 year old male who resides in a single family home in [place] with and children. He has no prior psychiatric history, no prior inpatient psychiatric hospitalizations, no prior suicide attempts, no history of non suicidal self injurious behavior, and no prior chemical dependency. Patient presented to the emergency room with first ep isode of acute mamadou and psychosis. In the emergency room medical workup was unremarkable and urine drug screen was negative. Psychiatry was initially consulted on 10/20/23 and patient was sedated and this provider spoke at length with Dr. Rosi Rosenberg about diagnoses and psychotropic recommendations. Psychiatry was consulted for evaluation for medication recommendations. On psychiatric interview, patient continues to struggle with symptoms of psychosis including suspiciousness and paranoia about his medications and medication region. Patient reports that various providers are coming in and out of the rooms and remains concerned that he is not receiving the right medications. Patient continues to believe the world is out of balance and that there needs to continue to be balance. Patient continues to be stuck on the ordering of his rational or not rational thoughts. Patient reports that he slept overnight. He reports sleeping approximately 4-5 hours overnight.. Collateral Contacted Contacted Meghann-- (at bedside). Collateral is unsure about patient's safety. Collateral reports patient has no access to firearms. reports that patient has had a steady decline in sleep in the weeks leading up to 10/20/23 and reports looking back on the situation his thinking was often tangential and difficult to follow. reports no safety concerns for the patient or concerns the patient was expressing thoughts to harm self or others.. PSYCHIATRIC REVIEW OF SYSTEMS (symptoms in past two weeks) Pertinent Positives:?insomnia/irritability/paranoia/anxiety/impulsivity Pertinent Negatives:?no depressed mood/no anhedonia/no hopelessness/no aggressive behavior/no agitation/no command hallucinations/no panic attacks PSYCHIATRIC HISTORY Past Psychiatric Diagnoses/Problems:?bipolar disorder Psychiatric Treatment: ???Hospitalizations:?recent discharge from psychiatric hospital ???Other Past treatment:?none ???Current treatment:?no reported current psychiatric treatment Drug/Alcohol History ???Current excessive drug/alcohol use:?no excessive drug use ???Past excessive drug/alcohol use:?no excessive drug use ???Casual drug/alcohol use: ???Treatment:?none ???Withdrawal symptoms:?none ???UDS results:?UDS negative ???BAL results:?undetectable ???Active withdrawal Protocol: Stressors: Trauma:?none Family Psychiatric History:?none HEALTH HISTORY Medical Problems: Is patient linked with PCP?:?no Medications:?depakote 500 mg three times a day quetiapine CR 600 mg daily olanzapine 5 mg twice daily Allergies/Adverse Medication Reactions:?NKDA Physical Findings:?no clinically significant changes in vital signs DEMOGRAPHICS/SOCIAL HISTORY Gender:?male Living Situation:?living with family Relationship Status:? 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 In the past two weeks, have you felt down, depressed, or hopeless??NO 2. In the past two weeks, have you had thoughts of killing yourself??NO 3. In your lifetime, have you ever attempted to kill yourself??NO 3a. Within the past 6 months??NO ESS-6 Secondary Screen ( If #2 is yes or #3a is yes within the past 6 months, then complete secondary screen) 1. Positive on PSS-3 questions 2 & 3 ? active suicidal ideation with a past attempt??Screen not applicable 2. Have you been thinking about how you might kill yourself??Screen not applicable 3. Have you had some intention of acting on your thoughts??Screen not applicable 4. Lifetime psychiatric hospitalization??Screen not applicable 5. Has drinking or substance abuse ever been a problem for you??Screen not applicable 6. Current irritability, agitation, or aggression??Screen not applicable PSS-3/ESS-6 Secondary Screen Scoring:?Low Risk-PSS3 screen negative PSS-3/ESS-6 Scoring Interpretation Legend PSS-3 screen incomplete [Blank PSS-3 questions #2 OR #3a] PSS-3 screen unable to assess [Unable to Assess responses on PSS-3 questions #2 AND #3a] Mild [No current attempt AND No suicide plan or intent AND Score (0-2)] Moderate [No current attempt AND Active suicidal ideation with plan or intent (not both) OR Score (3-4)] Severe [Current attempt OR Suicide plan and intent OR Score (5-6)] HI/Violence/Property Destruction:?no history of violent/aggressive behavior Access to Firearms:?none. Collateral reports patient has no access to firearms. Grave disability/Poor self-care:?no Psychosis:?Yes Protective Factors:?engaged in work or school; responsibility to children or others High Utilization Criteria:?None Signs of Secondary Gain:?None MENTAL STATUS EXAM Appearance and Attire:?dressed in blue scrubs Psychomotor agitation:?calm kinetics Attitude and behavior:?cooperative, suspicious, a bit guarded Speech:?spontaneous, fluent, normal volume Mood:?Anxious Affect:?blunted and restricted Thought Process:?significant loosening of associations, remains tangential Thought content:?ongoing paranoia Perception:?did not appear to be responding to internal stimuli Intelligence:?Above average Abstraction:?Poor reasoning Language:?No abnormality Orientation:?Grossly oriented Sensorium:?Distractible Knowledge:?Appropriate for education and socioeconomic status Memory:?Impaired to Executive function Insight:?poor insight Judgment:?poor judgment SUMMARY RISK ASSESSMENT Current Suicide Risk Elevated??PSS-3/ESS-6 Scoring: Low Risk-PSS3 screen negative Current Violence Risk Elevated??No Issues with ability to care for self.?Yes, decline in activities of daily living SAFE-T Risk Factors Suicidal Behavior: ??History of prior suicide attempts ??Aborted suicide attempt ??History of prior SI ??Self-injurious behavior Current/Past Psychiatric Disorders: ?Mood disorders ??Psychotic Disorders ? History of inpatient hospitalization ??ADHD ??TBI ??PTSD ??Cluster B personality disorders ??Conduct disorders ??Medical comorbidity ??Recent onset of illness Current/Past Substance Use: ??Active ETOH/Opiates/Other Substance abuse ??History of ETOH/Opiates/Other Substance abuse ??Active withdrawal or risk of withdrawal from ETOH/Opiate Rawls Symptoms: ??Anhedonia ? Impulsivity ??Hopelessness ? Anxiety/Panic ? Global insomnia (difficulty falling asleep, maintaining sleep, or falling back to sleep) ??Command Hallucinations Family History Risk Factors: ??Suicide Attempts ??Psychiatric disorders requiring hospitalization ??Suicidal Behavior Precipitants/Stressors/Interpersonal/Triggers: ??Events leading to humiliation, shame, or despair ??Family turmoil/chaos ??Chronic physical pain or other acute medical problems ??Perceived burden on others ??Ongoing medical illness ??History of physical or sexual abuse ??Legal problems ??Intoxication ??Social isolation ??Inadequate social support Treatment: ??Medication management ??Therapy ??Satisfied with current treatment ? Recent discharge from a psychiatric hospital ??Recent change in provider or treatment ??Access to firearms/ammunition Protective Factors Internal: ??Ability to cope with stress ??Identifies reasons for living ??Frustration tolerance ??Pentecostal beliefs ??Fear of or the actual act of killing self External: ??Cultural factors against suicide ??Beloved pets ? Engaged in work or school ??Spiritual and/or moral attitudes against suicide ? Supportive social network of family or friends ? Responsibility to children/others ??Positive therapeutic relationships Mery Ramos DO
--- NOTE | 2023-10-23 13:04 | PDOC.MHPN2 ---
Date of service: 10/22/23 Time of Service: 13:05 Mental Health Emergency Note Release [facility] release signed:: Yes Reason for Visit Per ROXANE Kelsey's EE dated 10.21.23, Per the client?s ?s report about two to three weeks ago the client started to become obsessive with bitcoin, but seemed to be rational at times. Over the past week the client has been believing that there was going to be a financial crash and that all of their finances needed to be moved to [facility] where [place] or [place] could oversee their finances. The client also believes that the world is coming to an end. This is his first of two daily check-ins completed face to face at the bedside. The client is unknown to [facility] as he is not from this area and as reported by his has no previous MH issues. He was last screened by RXOANE Kelsey on 10.21.23. In the last 2 weeks has the pt presented for ES prior to today?: Unknown Client Information Client is: New Well Housed: Yes Non Suicidal Self Injury Current: No History: No Safety Risk/Harm to Self or Others Current Ideation to Harm Self or Others: No Risk: Does risk to harm exist?: yes. Access to means: Yes. Types of Means: Other weapons. Counseling provided: Yes Risk: Severe (The client did not show much insight today due to his sedation. He inquired about this clinician's name several times. He repeated it and then would ask again. He inquired where his was noting that her name is Meghann and then asked if this clinician's name was Meghann. He is reported by staff to [facility]) Duty to warn indicated: No Asssessment/Mental Status Appearance: Well groomed Attitude: Cooperative and Other (sedated ) Behavior: Other (Chemically and physically restrained. ) Speech: Soft Affect: Flat Mood: Other (Chemically and physically restrained. ) Thought process: Loose associations Hallucinations: No Delusions: yes, Grandiose Attention: Poor concentration Perception: Derealization Orientation: Disoriented in Situation Insight: Poor Judgement: Poor Neurovegetative Symptoms Sleep: Decrease Appetitie: No change Interests: Increase ( Of a bizarre content please refer to presenting issue. ) Energy: Increase Libido: Not applicable Substance Use: Do you use nicotine?: No Have you used substances in the last 7 days?: No Additional Issues: Assaultive/Threatening Behavior: Yes Medical Concerns: No Client engaged in active self harm w/weapon: No Threatening to run away: Yes Child reported abuse/neglect: No Voluntarily presenting for services: No Domestic violence is a concern: No Extreme Psychosis or extreme behavior is present: Yes Impression This is this clinician's first ever time meeting the client and he is not known to [facility] as he lives in [facility]. He is not presenting voluntarily for any services and states that he wants to go home. He asked about his and where she was. Where is she staying? He repeated to this clinician love you and Don't you trust me? He could not show any insight as to why he was there or what was going on. The client is a , heterosexual, male who is and non- of origin. His spiritual beliefs are unknown. All underrepresented categories known were respected during his assessment. No screening tools were able to be completed due to his current mental status. The client presented as tired due to chemical restraints. He was unable to remain focused and was slurring his words so most was missed by this clinician. His arms are restrained to the bed and he has some sort of monitor checking his vitals. He did express he was thirsty so water was offered to him and he acknowledged appreciation. Plan/Disposition Recommended Disposition: Hospitalization facilities contacted. Plan: The client will remain at [facility] in [address] pending acceptance and transfer. Until such time he will be assessed twice daily. Person reported agreement to plan: No Facilities contacted if Applicable [facility] Not accepted, No bed available [facility] Not accepted, No bed available [facility] Not accepted, [place] [facility] Not accepted, No bed available [facility] Not accepted, Acuity Reports/communication Outcome discussed with: ED/Personnel
--- NOTE | 2023-10-23 13:12 | PDOC.MHPN2 ---
Date of service: 10/22/23 Time of Service: 13:12 Mental Health Emergency Note Release [facility] release signed:: Yes Reason for Visit Per ESC Laure's EE dated 10.21.23, Per the client?s ?s report about two to three weeks ago the client started to become obsessive with bitcoin, but seemed to be rational at times. Over the past week the client has been believing that there was going to be a financial crash and that all of their finances needed to be moved to [facility] where [place] or [place] could oversee their finances. The client also believes that the world is coming to an end. This is his second of two daily check-ins completed face to face at the bedside. The client is unknown to [facility] as he is not from this area and as reported by his has no previous MH issues. He was last screened by this clinician earlier today on 10.22.23 at the bedside. In the last 2 weeks has the pt presented for ES prior to today?: Unknown Impression This is this clinician's first day ever time meeting the client and he is not known to [facility] as he lives in the [facility]. He is not presenting voluntarily for any services and states that he wants to go home. He asked about his and where she was. Where is she staying? He repeated to this clinician love you and Don't you trust me? He could not show any insight as to why he was there or what was going on. The client is a , heterosexual, male who is and non- of origin. His spiritual beliefs are unknown. All underrepresented categories known were respected during his assessment. No screening tools were able to be completed due to his current mental status. The client is not alert as he was not able to respond to numerous attempts to awaken him and so this clinician aborted the attempt based on his the clients agitation and impulsiveness relating to his delusions. Plan/Disposition Recommended Disposition: Hospitalization (Earlier today they were. ) No. Plan: The client is pending review and acceptance to a psychiatric facility on 10.23.23. IF not accepted the client will be re-assessed twice daily by a HP with [facility]. Person reported agreement to plan: No Reports/communication Outcome discussed with: ED/Personnel
--- NOTE | 2023-10-24 10:12 | NUR.NOTE ---
Accessed pt chart to determine where the pt belongings went. Nursing Note:
--- NOTE | 2023-10-24 11:57 | NUR.NOTE ---
Accessed pt chart to determine the number of EKG orders. This order was cancelled due to no EKG in the [employer] system. Nursing Note:
[2023-10-24 14:01] LABS: Anaplasma phagocytophilum Negative (Negative); B. miyamotoi PCR Negative (Negative); Babesia divergens/MO-1 Negative (Negative); Babesia duncani Negative (Negative); Babesia microti Negative (Negative); Ehrlichia chaffeensis Negative (Negative); Ehrlichia ewingii/canis Negative (Negative); Ehrlichia muris eauclairensis Negative (Negative)
--- NOTE | 2023-10-24 15:58 | NUR.NOTE ---
Nursing Note: need V number for SQSS of a missing wallet
== END 2023-10-23 15:12 ==
PROVIDERS: Emergency Medicine; Emergency Provider Emergency Medicine; PCP Family Medicine
DX: F30.2 Manic episode, severe with psychotic symptoms (principal); Z78.1 Physical restraint status
CPT/HCPCS: 00123; 80053; 80307; 83690; 87798; 96372; 99285; 70450; 80320; 80329; 81003; 82140; 83735; 84443; 85025; 86618; J1200; J1790; J2060; J2250; J2359; J3490